=== PATIENT | male | born 1945 | race Caucasian/White ===

== ENCOUNTER → 2016-08-11 | Outpatient (CLI) | payer MEDICARE | LOC: GMAB 10:31 | PROVIDERS: ATTEND Family Medicine | DX: I10 Essential (primary) hypertension (principal); Z12.5 Encounter for screening for malignant neoplasm of prostate | CPT/HCPCS: 84443; G0103 ==

== ENCOUNTER → 2017-10-13 | Outpatient (CLI) | payer MEDICARE | LOC: GMAB 11:59 | PROVIDERS: ATTEND Family Medicine | DX: I10 Essential (primary) hypertension (principal); Z12.5 Encounter for screening for malignant neoplasm of prostate | CPT/HCPCS: 84443; G0103 ==

== ENCOUNTER 2017-12-12 05:31 | Day surgery (SDC) | payer MEDICARE, OTHER ==
[2017-12-12] MEDS ORDERED: TROP 1%/CYCLOPEN 1%/PHENYL 2% DROPS ONE (05:57)
[2017-12-12] MEDS ORDERED: PROPARACAINE 0.5% OPHTH SOL 15 ML BTTL ONE (05:57)
[2017-12-12] MEDS ORDERED: MIDAZOLAM INJ 2 MG/2 ML VIAL ONE ×2 (08:07→08:13)
[2017-12-12] MEDS ORDERED: PROPARACAINE 0.5% OPHTH SOL 15 ML BTTL RIGHT_EYE ONE (08:10)
[2017-12-12] MEDS ORDERED: LIDOCAINE 1% PF 2 ML AMP INJ ONE ×2 (08:18→08:24)
[2017-12-12] MEDS ORDERED: TOBRAMYCIN SULF 0.3 % OPHT SOL 1 DROP RIGHT_EYE ONE ×2 (08:19→08:37)
[2017-12-12] MEDS ORDERED: DEXAMETHASONE 0.1% OPHTH SOL 1 DROP RIGHT_EYE ONE ×2 (08:19→08:37)
[2017-12-12] MEDS ORDERED: BRIMONIDINE 0.2% OPHTH DROPS RIGHT_EYE ONE ×2 (08:19→08:38)
== END 2017-12-12 09:40 | disposition home or self-care (01) ==
LOC: AMB 05:31
PROVIDERS: ATTEND Ophthalmology
DX: H25.11 Age-related nuclear cataract, right eye (principal); I10 Essential (primary) hypertension; F17.220 Nicotine dependence, chewing tobacco, uncomplicated; Z79.899 Other long term (current) drug therapy
CPT/HCPCS: 00142; 66984; J2250

== ENCOUNTER 2017-12-26 05:36 | Day surgery (SDC) | payer MEDICARE, OTHER ==
[2017-12-26] MEDS ORDERED: PROPARACAINE 0.5% OPHTH SOL 15 ML BTTL ONE (08:33)
[2017-12-26] MEDS ORDERED: TROP 1%/CYCLOPEN 1%/PHENYL 2% DROPS ONE (08:33)
[2017-12-26] MEDS ORDERED: MIDAZOLAM INJ 2 MG/2 ML VIAL ONE (11:17)
[2017-12-26] MEDS ORDERED: LIDOCAINE 1% MPF 5 ML VIAL INJ ONE (11:23)
[2017-12-26] MEDS ORDERED: TOBRAMYCIN SULF 0.3 % OPHT SOL 1 DROP LEFT_EYE ONE ×2 (11:26→11:36)
[2017-12-26] MEDS ORDERED: DEXAMETHASONE 0.1% OPHTH SOL 1 DROP LEFT_EYE ONE ×2 (11:26→11:36)
[2017-12-26] MEDS ORDERED: BRIMONIDINE 0.2% OPHTH DROPS LEFT_EYE ONE ×2 (11:27→11:36)
== END 2017-12-26 12:10 | disposition home or self-care (01) ==
LOC: AMB 05:36
PROVIDERS: ATTEND Ophthalmology
DX: H25.12 Age-related nuclear cataract, left eye (principal); H52.202 Unspecified astigmatism, left eye; I10 Essential (primary) hypertension; Z79.899 Other long term (current) drug therapy
CPT/HCPCS: 00142; 66984; J2250

== ENCOUNTER → 2018-11-29 | Outpatient (CLI) | payer MEDICARE, OTHER | LOC: GMAE 10:21 | PROVIDERS: ATTEND Family Medicine | DX: Z12.5 Encounter for screening for malignant neoplasm of prostate (principal); I10 Essential (primary) hypertension | CPT/HCPCS: 84443; G0103 ==

== ENCOUNTER → 2018-12-01 | Outpatient (CLI) | payer MEDICARE, OTHER ==
--- NOTE | 2018-12-01 13:17 | CT ---
EXAM DESCRIPTION: Chest w/o Contrast : Computed Tomography. CLINICAL HISTORY: 73 years Male LUNG DISORDER. Abnormal chest x-ray 11/29/2018: Spiculated lesion in the right lower lobe. COMPARISON: See above. TECHNIQUE: Spiral-axial scans at 5 x 5 mm intervals through the lungs and thorax without IV contrast. 2.5 x 5 mm lung algorithm axial reconstructions. Coronal and sagittal 2.0 Mm reconstructions. Total Exam DLP: 192.34 mGy-cm. This exam was performed according to our departmental dose-optimization program which includes automated exposure control, adjustment of the mA and/or kV according to patient size and/or use of iterative reconstruction technique; to reduce radiation dose to as low as reasonably achievable (ALARA). Nodule measurements under 10 mm are given as mean value of 3 axes diameters. FINDINGS: Lungs and large airways: Dilated airspaces slightly more prevalent in the upper lobes. Pleural parenchymal scarring and pleural thickening anterior left lower lobe abutting the pleura with elongated scars present. Could also represent an early region of atelectasis or pneumonia. Smaller densities noted in the medial left lower lobe abutting the pleura. Minimal peripheral groundglass density bilaterally in the upper lobes. No abnormal nodules, or masses bilaterally. Pleural spaces: No calcification, effusion, thickening, or pneumothorax. Mediastinum and Flores: Evaluation limited due to lack of IV contrast no enlarged nodes or dominant soft tissue masses. Great vessels and Heart: Evaluation limited due to lack of IV contrast. Atherosclerotic calcifications and stents in the coronary arteries. Atherosclerotic calcifications brachiocephalic vessels and thoracic aorta. Soft tissues of neck base, axillae, and chest wall: Evaluation limited due to lack of IV contrast. Sternum rotated counterclockwise and slightly depressed relative to the abdomen. Previous midsternal body fracture and deformity. No enlarged axillary nodes. Upper abdomen: No free air or free fluid in the included peritoneal space. Gallbladder partially visualized. Atherosclerotic calcifications of the abdominal aorta and abdominal arteries. Osseous structures: At least 75% compression of the central T8 vertebral body with 3 mm retropulsion inferior endplate. 50% compression anterior. Bilateral T7-8 and T8-9 foraminal narrowing with canal narrowing. Age unknown. Overall bone density is decreased. Also minimal depression or old Schmorl's node superior L1 endplate. Multiple Schmorl's nodes at other levels with degenerative gas formation in the disc spaces. 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 Most likely chronic scarring and pleural thickening right lower lobe without pleural calcification or effusion. Differential also includes acute infiltrate or atelectasis. Malignant change less likely. Consider follow-up chest CT scan in one month interval. No abnormal nodules or masses. 2. Healing mid body sternal fracture. Significant compression injury T8. Correlate for age of fracture. Patient may benefit from vertebroplasty. Electronically signed by: Barry Wallis MD 12/01/2018 1:15 PM CDT
== END ==
LOC: CT 09:30
PROVIDERS: ATTEND Family Medicine
DX: J98.4 Other disorders of lung (principal); S22.22XA Fracture of body of sternum, initial encounter for closed fracture; S22.060A Wedge compression fracture of T7-T8 vertebra, initial encounter for closed fracture

== ENCOUNTER → 2019-12-28 | Outpatient (CLI) | payer MEDICARE, OTHER | LOC: GMAE 12:45 | PROVIDERS: ATTEND Family Medicine | DX: R63.4 Abnormal weight loss (principal) ==